=== PATIENT | female | born 1970 | race Caucasian/White ===

== ENCOUNTER 2023-07-20 22:30 | Emergency (ER) | payer OTHER, SELFPAY ==
[2023-07-20 22:33] VITALS: BP 219/123
[2023-07-20 22:56] LABS: Urine Albumin Negative (Neg - Trace); Urine Bilirubin Negative (Negative); Urine Character Clear (Clear); Urine Color Straw; Urine Glucose Negative (Negative); Urine Ketone Negative (Negative); Urine Leukocyte Negative (Negative); Urine Nitrite Negative (Negative); Urine Occult Blood Negative (Negative); Urine Specific Gravity 1.005 (<1.030); Urine Urobilinogen Negative (Neg - 1+)
[2023-07-20 23:15] VITALS: BP 222/106
[2023-07-20 23:45] LABS: % Basophils 0.5 % (0-2); % Eosinophils 1.8 % (0-6); % Immature Granulocytes 0.4 % (0-0.5); % Lymphocytes 31.9 % (20.5-51.1); % Monocytes 5.2 % (1.7-9.3); % Neutrophils 60.2 % (42.2-75.2); Absolute Basophils 0.1 10^3/uL (0-0.2); Absolute Eosinophils 0.2 10^3/uL (0-0.7); Absolute Lymphocytes 3.5 10^3/uL (1.2-3.4); Absolute Monocytes 0.6 10^3/uL (0.1-0.6); Absolute Neutrophils 6.7 10^3/uL (1.4-6.5); Hematocrit 40.6 % (37.0-47.0); Mean Corp Hgb Conc. 34.5 g/dL (33.0-37.0); Mean Corpuscular Hgb 29.9 pg (27.0-31.0); Mean Corpuscular Volume 86.8 fL (81.0-99.0); Mean Platelet Volume 9.4 fL (7.4-10.4); Nucleated Red Blood Cells % 0 %; Platelet Count 259 10^3/uL (130-400); Red Blood Cell Count 4.68 10^6/uL (4.20-5.40); Red Cell Dist. Width 14.2 % (11.5-14.5); White Blood Cell Count 11.1 10^3/uL (4.8-10.8)
[2023-07-20 23:51] VITALS: BP 212/100
[2023-07-20 23:58] LABS: ALT (SGPT) 26 U/L (0-35); AST (SGOT) 33 U/L (14-36); Albumin 4.8 g/dl (3.5-5.0); Alkaline Phosphatase 81 U/L (38-126); Blood Urea Nitrogen 14 mg/dl (7-17); Calcium 9.9 mg/dl (8.4-10.2); Carbon Dioxide 26 mmol/L (22-30); Chloride 103 mmol/L (98-107); Glucose 95 mg/dl (70-99); Potassium 4.1 mmol/L (3.5-5.1); Sodium 136 mmol/L (135-145); Total Bilirubin 0.5 mg/dl (0.2-1.3); Total Protein 7.5 g/dl (6.3-8.2); eGFR > 60.00
[2023-07-21] VITALS: BP 186/96
--- NOTE | 2023-07-21 00:01 | ED.GENMED ---
History of Present Illness
General
Chief Complaint: Blood Pressure Problem
Source: patient and family
Exam Limitations: none
Time Seen by Provider: 07/20/23 23:05
Travel History
Have you had any contact with someone who has COVID-19?: No
Do you have any symptoms of coronavirus? Fever > 100 degrees, chills, cough, shortness of breath, sore throat, loss of taste or smell, muscle aches, or headache?: No
History of Present Illness
History of Present Illness:
53-year-old female who presents for evaluation of her blood pressure. The patient states that she has been dealing with blood pressure readings that seem to fluctuate from relatively normal to quite elevated. The patient states that she was
checking it tonight after being relaxed and it noted that her blood pressure was 180/98 and she became concerned. Patient denies chest pain or shortness of breath. She in fact denies any current symptoms. She recently did see her doctor and was
placed on hydrochlorothiazide with the plan to wean down propranolol. She states that as she did that, she did not feel well so went back on the propranolol. Patient does note a history of anxiety.
Past History
Past History
ED Past Medical History: HTN, Psychiatric (anxiety) and Other (migraines)
ED Past Surgical History: Gynecological (hysterectomy with bladder repair)
Social History
Tobacco: Non-smoker
Alcohol: None
Personal:
Living: with family
Employment: Employed
Family History
Family History: Other (Noncontributory)
Phy Exam
Physical Exam
Physical Exam:
CONSTITUTIONAL Patient alert and oriented to person, place and time. Well-appearing. Vital signs reviewed.
HEAD atraumatic, normocephalic.
EYES eyelids normal to inspection, Pupils equally round and reactive to light, Extraocular muscles intact, Conjunctiva normal, Sclera normal.
NECK normal range of motion, Trachea midline, no jugular venous distention.
RESPIRATORY CHEST No respiratory distress noted, Chest expansion equal, Bilateral breath sounds clear.
CARDIOVASCULAR regular rate and rhythm, Heart sounds normal.
ABDOMEN abdomen nontender, Bowel sounds normal. No distention.
BACK normal inspection, no obvious deformities
UPPER EXTREMITY range of motion normal, Motor strength normal, no cyanosis, no edema.
LOWER EXTREMITY range of motion normal, Motor strength normal, no cyanosis, no edema.
NEURO Speech normal, No focal motor deficits, Grady coma scale 15, Memory normal, Cranial Nerves intact to screening exam.
SKIN skin warm, dry, and normal in color.
PSYCHIATRIC patient oriented to person place and time, Normal affect.
Course
Orders/Labs/Results
Orders:
Orders
07/20/23 22:38
EKG [Electrocardiogram (*1)] Urgent
Reason for Study: Hypertension, Benign
EKG- Treatment ONCE
07/20/23 22:45
Urinalysis Reflex To Culture Urgent
Date Specimen was Collected: 07/20/23
Time Specimen was Collected: 22:40
07/20/23 23:39
Complete Blood Count/With Diff Urgent
Comprehensive Metabolic Panel Urgent
07/21/23 01:47
Labetalol [Trandate] 100 mg PO NOW STA
Abnormal Lab Results
07/20/23
23:39
WBC 11.1 H 10^3/uL
(4.8-10.8)
Absolute Neuts (auto) 6.7 H 10^3/uL
(1.4-6.5)
Absolute Lymphs (auto) 3.5 H 10^3/uL
(1.2-3.4)
07/20/23 23:39
07/20/23 23:39
Vital Signs
Initial and Last Documented VS:
Initial Vital Signs
Temp Pulse Resp BP Pulse Ox
99.4 F 99 16 219/123 99
07/20/23 22:33 07/20/23 22:33 07/20/23 22:33 07/20/23 22:33 07/20/23 22:33
Last Documented Vital Signs
Temp Pulse Resp BP Pulse Ox
99.4 F 99 16 186/96 99
07/20/23 22:33 07/20/23 22:33 07/20/23 22:33 07/21/23 00:00 07/21/23 00:00
MDM/Problems Addressed
MDM/Problems Addressed:
Uncontrolled hypertension
*Pulse Oximetry
Patient hypoxic: no
*EKG
Interpreted by ED Provider?: Yes
Interpretation: normal
Rate: normal
Rhythm: sinus
[place]: normal axis
Interval: normal interval
QRS Pattern: normal QRS
Ischemia: no ischemia
*Clinical Laboratory Medical Director Interpretation
Rate: normal
Interpretation: normal
Rhythm: sinus
*Critical Care Note
Total Time (30-74mins, 75-104mins- exclusive of procedures): 30 minutes
Data Reviewed
Review of Other/Old Records Reveals: Discharge Summary (Discharge summary from May 2022 reviewed. Patient has a trimalleolar fracture)
Source: patient and family
Further Testing Considered But Not Given:
Considered troponin but no chest pain. No other cardiac symptoms
Patient Management
Escalation/DeEscalation of care consider admission/obs:
Lengthy discussion with the patient. I do feel that beta-carlos eduardo may be helpful in light of her history of anxiety. Will stop propranolol. Patient prefers labetalol. Trial labetalol and recommended outpatient follow-up with PCP. She will keep
the daily twice a day log of her blood pressure.
ED Attending Note
-
Portions of this chart may have been created with voice recognition software.� Occasional wrong word or��sound alike� substitutions may have occurred due to the inherent limitations of voice recognition software.
Discharge Plan
Departure
Patient Disposition: Home (Routine Discharge)
Date of Disposition: 07/21/23
Time of Disposition: 01:48
Patient with high blood pressure during this ER visit?: Yes
Discharge Problem:
Uncontrolled hypertension
Instructions: High Blood Pressure (DC), BLOOD PRESSURE
Prescriptions:
New
labetalol 100 mg tablet
100 mg PO BID Qty: 60 0RF
No Action
escitalopram oxalate 10 MG tablet
5 mg PO DAILY
therapeutic multivitamin Tablet
1 tab PO DAILY
aspirin 325 mg Tablet
325 mg PO DAILY Qty: 0 0RF
propranolol 20 mg Tablet
20 mg PO DAILY Qty: 0 0RF
docusate sodium 100 mg Capsule
100 mg PO BID Qty: 0 0RF
tamsulosin 0.4 mg Capsule
0.4 mg PO DAILYPRN PRN (Reason: bladder scan volume > 400 mL) Qty: 7 0RF
acetaminophen [Tylenol] 325 mg tablet
650 mg PO Q6H Qty: 1 0RF
ibuprofen [Motrin IB] 200 mg capsule
400 mg PO Q6H Qty: 1 0RF
Rx Instructions:
alternate with tylenol
diazepam [Valium] 2 mg tablet
2 mg PO TID PRN (Reason: spasms) Qty: 14 0RF
Referrals:
April Zepeda PA [Family Provider] -
Activity Restrictions/Additional Instructions:
Please keep a twice daily log of your blood pressures. Return to immediately for chest pain, headache, motor weakness, vision changes shortness of breath, weakness; or any other concerns. Please see your doctor in the next 3 to 5 days for
follow-up and reevaluation of your blood pressure and treatment with labetalol. Please stop your propranolol while on labetalol
Interventions
Interventions:
*Risk Screen - Suicide Last Done: 07/20/23 22:33
*General Assessment Last Done: 07/20/23 22:33
*Neglect/Abuse Screening Last Done: 07/20/23 22:33
ED- Fall Risk Assessment Last Done: 07/20/23 23:52
ED- Cardiac Assessment Last Done: 07/20/23 23:52
ED- Neurological Assessment Last Done: 07/20/23 23:52
ED- Pulmonary Assessment Last Done: 07/20/23 23:52
Discharge Date and Time
Print Language: LATVIAN
[2023-07-21 01:00] VITALS: BP 207/92
[2023-07-21 01:16] VITALS: BP 195/103
[2023-07-21] MEDS: TRANDATE 100 MG PO (02:11)
== END 2023-07-21 02:20 | disposition home or self-care (01) ==
LOC: EMR 22:30
PROVIDERS: Emergency Medicine; EMERGENCY PHYSICIAN Emergency Medicine; FAMILY PHYSICIAN Physician Assistant
DX: I10 Essential (primary) hypertension (principal); F41.9 Anxiety disorder, unspecified
CPT/HCPCS: 99291; 80053; 81003; 85025; 93005

== ENCOUNTER → 2023-08-27 08:04 | Outpatient (REF) | payer OTHER, SELFPAY | LOC: WDC 08:04 | PROVIDERS: ATTENDING PHYSICIAN Family Medicine | DX: Z12.31 Encounter for screening mammogram for malignant neoplasm of breast (principal) | CPT/HCPCS: 77063; 77067 ==

== ENCOUNTER → 2023-09-02 09:27 | Outpatient (REF) | payer OTHER, SELFPAY | LOC: WDC 09:27 | PROVIDERS: ATTENDING PHYSICIAN Family Medicine | DX: R92.8 Other abnormal and inconclusive findings on diagnostic imaging of breast (principal) | CPT/HCPCS: 76642 ==

== ENCOUNTER 2024-06-07 23:35 | Emergency (ER) | payer OTHER, SELFPAY ==
[2024-06-07 23:38] VITALS: BP 240/132
[2024-06-08 00:13] VITALS: BMI 36.3
[2024-06-08 00:16] VITALS: BP 209/102
[2024-06-08 00:47] LABS: Hematocrit 41.7 % (37.0-47.0); Hemoglobin 14.2 g/dL (12.0-16.0); Mean Corp Hgb Conc. 34.1 g/dL (33.0-37.0); Mean Corpuscular Volume 88.2 fL (81.0-99.0); Mean Platelet Volume 9.2 fL (7.4-10.4); Platelet Count 229 10^3/uL (130-400); Red Blood Cell Count 4.73 10^6/uL (4.20-5.40); Red Cell Dist. Width 14.3 % (11.5-14.5)
[2024-06-08 00:55] LABS: ALT (SGPT) 24 U/L (0-35); AST (SGOT) 29 U/L (14-36); Albumin 4.8 g/dl (3.5-5.0); Alkaline Phosphatase 82 U/L (38-126); Blood Urea Nitrogen 17 mg/dl (7-17); Calcium 10.4 mg/dl (8.4-10.2); Carbon Dioxide 27 mmol/L (22-30); Chloride 103 mmol/L (98-107); Estimated Creatinine Clearance 95 ml/min; Glucose 107 mg/dl (70-99); Potassium 3.9 mmol/L (3.5-5.1); Sodium 137 mmol/L (135-145); Total Bilirubin 0.5 mg/dl (0.2-1.3); Total Protein 7.6 g/dl (6.3-8.2); eGFR > 60.00
[2024-06-08 01:00] VITALS: BP 181/102
[2024-06-08 01:04] LABS: Troponin I < 0.012 ng/ml
[2024-06-08 01:17] LABS: % Basophils 0.4 % (0-2); % Eosinophils 1.8 % (0-6); % Immature Granulocytes 0.6 % (0-0.5); % Lymphocytes 36.5 % (20.5-51.1); % Monocytes 5.2 % (1.7-9.3); % Neutrophils 55.5 % (42.2-75.2); Absolute Basophils 0.1 10^3/uL (0-0.2); Absolute Eosinophils 0.2 10^3/uL (0-0.7); Absolute Immature Granulocytes 0.1 10^3/uL (0-0.05); Absolute Lymphocytes 4.4 10^3/uL (1.2-3.4); Absolute Monocytes 0.6 10^3/uL (0.1-0.6); Absolute Neutrophils 6.7 10^3/uL (1.4-6.5); Nucleated Red Blood Cells % 0 %
[2024-06-08 01:29] VITALS: BP 186/101
[2024-06-08 02:00] VITALS: BP 194/102
[2024-06-08 02:35] VITALS: BP 177/87
[2024-06-08] MEDS: APRESOLINE 10 MG IV (02:39)
--- NOTE | 2024-06-08 02:40 | ED.GENMED ---
History of Present Illness
General
Chief Complaint: Blood Pressure Problem
Source: patient and spouse
Exam Limitations: none
Time Seen by Provider: 06/08/24 02:26
Nursing documentation reviewed up to this point in time: agreed with
History of Present Illness
History of Present Illness:
54-year-old female presents Emergency Department due to elevated blood pressure at home and some vertigo earlier. She took meclizine that did help her vertigo. She also took an extra labetalol. She states she is feeling very stressed.
Past History
Past History
ED Past Medical History: HTN, Psychiatric (anxiety) and Other (migraines)
ED Past Surgical History: Gynecological (hysterectomy with bladder repair)
Social History
Tobacco: Non-smoker
Alcohol: None
Personal:
Living: with family
Employment: Employed
Family History
Family History: Other (Noncontributory)
Review of Systems
Review of Systems
Allergies reviewed?: Yes
All Other Systems: Not applicable
Constitutional: Reports no symptoms
EENT: Reports no symptoms
Respiratory: Reports no symptoms; Denies trouble breathing
Cardiac: Reports no symptoms; Denies chest pain
ABD/GI: Reports no symptoms
: Reports no symptoms
Musculoskeletal: Reports no symptoms
Skin: Reports no symptoms
Neurological: Reports dizzy
Endocrine: Reports no symptoms
Hematologic/Lymphatic: Reports no symptoms
Psychiatric: Reports no symptoms
Phy Exam
Physical Exam
Physical Exam:
Physical Exam
General: no apparent distress, not acutely ill, blood pressure 194/102
Neck: supple. no meningeal signs. normal posterior pharynx
Heart: s1/s2 regular rate and rhythm, no murmur. equal radial
pulses.
HEENT: Pupils equal round reactive to light, EOMI
Lungs: no acute respiratory distress. clear bilaterally
Abdomen: normal bowel sounds. not tender. no CVAT
Neuro: alert and oriented. no focal neurological deficits cranial nerves II through XII intact
Skin: no rash
Psychiatric: well kept. interactive and cooperative
Extremities: no edema. no calf tenderness. negative homans. good distal pulses
Course
Orders/Labs/Results
Orders:
Orders
06/07/24 23:42
ECG [Electrocardiogram (*1)] Urgent
Reason for Study: Hypertension, Benign
06/07/24 23:43
EKG- Treatment ONCE
06/08/24 00:31
Complete Blood Count/With Diff Urgent
Comprehensive Metabolic Panel Urgent
Troponin I Urgent
06/08/24 02:35
HydrALAZINE [Apresoline] 10 mg IV NOW STA
Abnormal Lab Results
06/08/24
00:31
WBC 12.0 H 10^3/uL
(4.8-10.8)
Abs Immat Gran (auto) 0.1 H 10^3/uL
(0-0.05)
Absolute Neuts (auto) 6.7 H 10^3/uL
(1.4-6.5)
Absolute Lymphs (auto) 4.4 H 10^3/uL
(1.2-3.4)
Immature Gran % 0.6 H %
(0-0.5)
Glucose 107 H mg/dl
(70-99)
Calcium 10.4 H mg/dl
(8.4-10.2)
06/08/24 00:31
06/08/24 00:31
Vital Signs
Initial and Last Documented VS:
Initial Vital Signs
Temp Pulse Resp BP Pulse Ox
98.9 F 80 20 240/132 98
06/07/24 23:38 06/07/24 23:38 06/07/24 23:38 06/07/24 23:38 06/07/24 23:38
Last Documented Vital Signs
Temp Pulse Resp BP Pulse Ox
98.9 F 72 15 177/87 99
06/07/24 23:38 06/08/24 02:39 06/08/24 02:30 06/08/24 02:39 06/08/24 02:30
MDM/Problems Addressed
Differential Diagnosis Includes:
Accelerated hypertension, vertigo
MDM/Problems Addressed:
54-year-old female with elevated blood pressure, improved with observation and hydralazine. Patient stable for discharge. Do not suspect intracranial hemorrhage or CVA. Treat with hydralazine prescription in addition to labetalol.
Chronic conditions affecting care: HTN
Acute Exacerbation and/or Progression of Chronic Illness: HTN
*Pulse Oximetry
Patient hypoxic: no
*EKG
Interpreted by ED Provider?: Yes
EKG Intrepretation Date: 06/07/24
EKG Intrepretation Time: 23:50
Interpretation: abnormal
Comparison EKG: no changes
Heart Rate: 71
Rate: normal
Rhythm: sinus
[place]: normal axis
Interval: normal interval
QRS Pattern: normal QRS
Ischemia: no ischemia
*Editor Interpretation
Rate: normal
Interpretation: normal
Heart Rate: 70
Rhythm: sinus
*Critical Care Note
Total Time (30-74mins, 75-104mins- exclusive of procedures): 30
comment:
Critical care statement: A total of 30 minutes of critical care time was provided for this patient. This includes management of unstable vital signs, evaluation of the patient at bedside, reviewing the patient's pertinent medical records, discussion
with consultants, review of old EKGs and review of pertinent medical records. This time with separate from time utilized to perform the aforementioned documented procedures
Patient Management
Social determinants of health affecting care: Living situation and Strong social support
Escalation/DeEscalation of care consider admission/obs:
Admit not indicated
ED Attending Note
-
Portions of this chart may have been created with voice recognition software.� Occasional wrong word or��sound alike� substitutions may have occurred due to the inherent limitations of voice recognition software.
Discharge Plan
Departure
Patient Disposition: Home (Routine Discharge)
Date of Disposition: 06/08/24
Time of Disposition: 03:14
Patient with high blood pressure during this ER visit?: Yes
Condition: Good
Discharge Problem:
Accelerated essential hypertension, Dizziness
Instructions: High Blood Pressure (DC), Dizziness in adults - ED discharge instructions, BLOOD PRESSURE
Prescriptions:
New
hydralazine 25 mg tablet
25 mg PO QID Qty: 120 0RF
No Action
escitalopram oxalate 10 MG tablet
5 mg PO DAILY
acetaminophen [Tylenol] 325 mg tablet
650 mg PO Q6H Qty: 1 0RF
ibuprofen [Motrin IB] 200 mg capsule
400 mg PO Q6H Qty: 1 0RF
Rx Instructions:
alternate with tylenol
labetalol 100 mg tablet
100 mg PO BID Qty: 60 0RF
meclizine 25 mg Tablet
25 mg PO DAILY PRN (Reason: dizziness )
Referrals:
April Zepeda PA [Family Provider] - Call in 1-3 days for appt
Interventions
Interventions:
*Risk Screen - Suicide Last Done: 06/07/24 23:38
*General Assessment Last Done: 06/08/24 00:14
*Neglect/Abuse Screening Last Done: 06/07/24 23:38
*ED- Fall Risk Assessment Last Done: 06/08/24 00:14
*ED COVID-19 Vaccine History Last Done: 06/08/24 00:14
ED- Cardiac Assessment Last Done: 06/08/24 00:17
ED- Neurological Assessment Last Done: 06/08/24 00:17
ED- Pulmonary Assessment Last Done: 06/08/24 00:17
Discharge Date and Time
Print Language: KOSOVAN
[2024-06-08 03:00] VITALS: BP 164/77
== END 2024-06-08 03:34 | disposition home or self-care (01) ==
LOC: EMR 23:35
PROVIDERS: EMERGENCY PHYSICIAN Emergency Medicine; FAMILY PHYSICIAN Physician Assistant
DX: R03.0 Elevated blood-pressure reading, without diagnosis of hypertension (principal); R42 Dizziness and giddiness; F41.9 Anxiety disorder, unspecified; I10 Essential (primary) hypertension; Z90.710 Acquired absence of both cervix and uterus
CPT/HCPCS: 99291; 96374; 80053; 84484; 85025; 93005

== ENCOUNTER → 2024-08-30 08:26 | Outpatient (REF) | payer OTHER, SELFPAY | LOC: WDC 08:26 | PROVIDERS: ATTENDING PHYSICIAN Physician Assistant | DX: Z12.31 Encounter for screening mammogram for malignant neoplasm of breast (principal) | CPT/HCPCS: 77063; 77067 ==